=== PATIENT | male | born 1985 | race African-American/Black ===

== ENCOUNTER 2019-01-12 19:22 | Emergency (ER) | payer OTHER ==
[~2019-01-12] VITALS: Ht 195.6 cm; Wt 78.0 kg
[2019-01-12 21:00] VITALS: BP 147/76
== END 2019-01-12 20:12 | disposition home or self-care (01) ==
LOC: FSED 19:22
DX: S39.012A Strain of muscle, fascia and tendon of lower back, initial encounter (principal); V49.50XA Passenger injured in collision with unspecified motor vehicles in traffic accident, initial encounter; Y92.410 Unspecified street and highway as the place of occurrence of the external cause; M54.9 Dorsalgia, unspecified
CPT/HCPCS: 99282